=== PATIENT | male | born 1985 | race Caucasian/White ===

== ENCOUNTER 2016-07-22 14:44 | Emergency (ER) | payer OTHER ==
[~2016-07-22] VITALS: Ht 185.4 cm; Wt 90.9 kg
[2016-07-22 14:53] VITALS: BP 132/74; PULSE 110; RESP 16; O2SAT 97
--- NOTE | 2016-07-22 14:54 | ED.REPORT ---
HPI-Rash / Abscess Date of Service Jul 22, 2016 ED Provider: History of Present Illness: 31-year-old male here for an abscess on his left arm. He shot heroin into his arm 3 days ago. There was a small abscess there for a few days. Yesterday it really started to swell. It is much worse today. No fever or systemic symptoms. No joint pain. Has never had an abscess before. tdap utd Nursing Notes Stated Complaint: ABSCESS ON ARM Chief Complaint: Skin Rash/Abscess Nursing Notes Reviewed: Yes Allergies: Coded Allergies: No Known Allergies (Unverified Allergy, Unknown, 04/04/14) Scheduled Cephalexin (Keflex) 500 Mg Capsule 500 MG PO QID Sulfamethoxazole/Trimeth 800-160 mg (Bactrim DS) 1 Each Tablet 1 TABLET PO BID General Time Seen by MD: 14:53 Chief Complaint Abscess Hx Obtained From: Patient Arrived By: Walk-in Onset Occurred: 3 days ago Context of Onset: Other (drug use) Symptom Duration: Constant Location: : Arm Severity: Current: Moderate Severity: Maximum: Moderate Associated with: Denies Fever Pertinent Negative: Pt denies other symptoms Recent Healthcare: No recent doctor visit Similar Sx Previous: No Past Medical History Past Medical History Ureterolithiasis, otherwise healthy Past Surgical History Denies Family History Mother - stroke Heart disease Smoking History Current Every Day Smoker Social History Works in construction. Alcohol Use: Denies alcohol use Drug Use: THC Ambulatory Status Independent Review of Systems Basic Review of Systems Hematologic: No bleeding, No bruising Neurologic: NL mental status, No weakness, No numbness Psychiatric: Normal thought content Constitutional: Denies: Chills, Fatigue, Fever, Lethargy, Malaise Respiratory: Denies: Dyspnea on exertion Cardiovascular: Denies: Chest pain GI: Denies: Abdominal pain, Nausea, Vomiting Musculoskeletal: Reports: Extremity pain, Extremity swelling Skin: Reports Swelling Complete sys rev & neg: except as marked. Physical Exam Initial Vital Signs Vital Signs (First) Date Time Temp Pulse Resp B/P Pulse Ox O2 Delivery O2 Flow Rate FiO2 07/22/16 14:53 37.4 110 16 132/74 97 Room Air Initial VS: Reviewed, Vital signs normal Head / Eyes: Atraumatic, Normocephalic, PERRL ENT: Mucous membranes moist, Conjunctiva normal, No scleral icterus Neck: Supple, Non-tender, Full range of motion Respiratory: Breath sounds normal, Clear to auscultation, No respiratory distress Cardiovascular: Regular rate & rhythm, Heart sounds normal, Intact distal pulses Abdomen / GI: Soft, Non-tender, No guarding, No rebound, No distention Neurologic: Alert, Oriented, Nonfocal Psychiatric: Mood/affect normal, Behavior normal, Normal thought content General/Constitutional: Awake, Alert, Well appearing Skin: Atraumatic Rash / Lesion Notes: 2.5 cm diamter area of induration to radial aspect of elbow/forearm. with a large area of swelling surrounding abscess. swelling extends 2 inches above elbow to 4 inches below. erythema localized to abscess. very light erythema only surrounding tissue. swelling nontender. very tender to abscess. no pain with palpation of joint space. no pain wtih movement of elbow - flex/extention Procedures Incision & Drainage Abscess I & D Abscess: attempted to place wick/packing, would not enter wound significantly. gauze applied to exterior. Procedure Performed by: [facility] Consent / Setup / Site Prep: Informed consent provided Location of Abscess: L elbow/forearm Local Anesthesia: Lidocaine 1% Incised Abscess with Scalpel: #11 Pus Drained: Large, Purulent discharge Post-Procedure / Complications: Culture obtained, Dressing applied, No complications Discharge & Departure Impression: Primary Impression: Abscess Additional Impression: Cellulitis Site of cellulitis: extremity Site of cellulitis of extremity: upper extremity Laterality: left Qualified Code: L03.114 - Cellulitis of left upper limb Disposition: Home Discharge Condition All VS Reviewed: Yes Condition: Stable Patient Instructions: Abscess (ED) Additional Instructions: take your antibiotics as prescribed. follow up for recheck in 24 hrs. You can come here or go to the walk in clinic. If your infection worsens, redness expands, swelling expands, you get fevers, return to ER immediately. You can apply warm packs to arm as discussed. ibuprofen or tylenol as needed for pain. Keep covered with gauze. Referrals: NOPCP (PCP) EDSupervising Provider for APC: Deonte Charles Linnea K [facility] Jul 22, 2016 14:54
[2016-07-22] MEDS ORDERED: Trimethoprim-Sulfa 160 mg-800 mg Tablet PO ONE (15:20)
[2016-07-22] MEDS ORDERED: cefTRIAXone Inj 1,000 MG, Lidocaine PF 1% Inj 2.1 ML in Syringe 0 EACH IM ONE (15:20)
[2016-07-22] MEDS ORDERED: CEPH-512 PO (15:21)
[2016-07-22] MEDS ORDERED: SULF1TAB7 PO (15:21)
[2016-07-22 15:36] VITALS: BP 132/74; PULSE 110; RESP 16; O2SAT 97
== END 2016-07-22 15:36 | disposition home or self-care (01) ==
LOC: SED 14:44
DX: L02.414 Cutaneous abscess of left upper limb (principal); L03.114 Cellulitis of left upper limb; F11.10 Opioid abuse, uncomplicated; F17.200 Nicotine dependence, unspecified, uncomplicated; F12.10 Cannabis abuse, uncomplicated
CPT/HCPCS: 10061; 87070; 87075; 87077; 87186; 87205; 96372; 99284; J0696